=== PATIENT | male | born 1975 | race Caucasian/White ===

== ENCOUNTER → 2021-01-30 | Outpatient (CLI) | payer OTHER ==
--- NOTE | 2021-01-31 11:37 | RAD ---
PQRS Compliance Statement: One or more of the following individualized dose reduction techniques were utilized for this examinat ion: 1. Automated exposure control 2. Adjustment of the mA and/or kV according to patient size 3. Use of iterative reconstruction technique CT NECK SOFT TISSUE WITHOUT CONTRAST 01/30/2021 3:05 PM Indication: Acute sialoadenitis COMPARISON: None available. TECHNIQUE: Multiple axial CT images of the neck were obtained without venous contrast. Coronal and sa gittal reformats are provided. FINDINGS: No suspicious abnormality involving the visualized portions of the brain parenchyma and posterior fos sa. Orbits are normal in appearance. Paranasal sinuses are well aerated. [employer] space is normal. Oral cavity, floor of mouth and sublingual space are intact. Submandibular and parotid glands are nor mal in appearance. [employer] In[employer] spaces normal. There is a right submandibular lymph node which is borde rline enlarged measuring 1.2 x 1.0 cm (series 2, image 39) with adjacent inflammation. There is mild thickening of the adjacent platysma with minimal fat stranding within subcutaneous fat along the righ t cheek. Parapharyngeal fat is preserved. Nasopharynx is normal. No retropharyngeal lymphadenopathy. Oropharyn x, base of tongue, hypopharynx, larynx and trachea are normal in appearance. Thyroid gland is normal in appearance. No suspicious osseous abnormality is identified. Skull base is intact. Lung apices are clear. IMPRESSION: 1. There is an inflamed lymph node within the right submandibular region, inferior to the right parot id gland. Consideration may be given for lymphadenitis. No definite drainable abscess is identified. Correlate with any recent local inflammation or infection. Nonenlarged right parotid lymph nodes akin ure up to 6 mm. Electronically signed by: Tiffanie Ray MD (01/31/2021 11:35 AM) [id number]
== END ==
LOC: CT 14:50
PROVIDERS: ATTEND Family Medicine
DX: K11.21 Acute sialoadenitis (principal)
CPT/HCPCS: 70490